=== PATIENT | female | born 1960 | race African-American/Black ===

== ENCOUNTER 2021-04-17 23:45 | Emergency (ER) | payer MEDICAID ==
[~2021-04-17] VITALS: Ht 165.1 cm; Wt 73.0 kg
[2021-04-18 00:49] LABS: BASOPHILS % 0.6 % (0.0-2.0); EOSINOPHILS % 4.5 % (0.0-5.0); HEMATOCRIT. 35.6 % (36.0-48.0); HEMOGLOBIN. 11.5 g/dL (12.0-16.0); LYMPHOCYTES % 22.8 % (20.0-50.0); MEAN CORPUSCULAR VOLUME 80.2 fL (81.0-99.0); MEAN PLATELET VOLUME 7.7 fl (7.4-10.4); NEUTROPHILS % 62.1 % (40.0-76.0); PLATELET 195 x1000/uL (130-400); RED BLOOD CELL COUNT 4.44 mill/uL (4.2-5.4); RED CELL DISTRIBUTION WIDTH 16.5 % (11.6-14.6)
[2021-04-18 04:37] VITALS: BP 140/67
== END 2021-04-18 04:52 | disposition home or self-care (01) ==
LOC: ER 23:45
DX: T43.211A Poisoning by selective serotonin and norepinephrine reuptake inhibitors, accidental (unintentional), initial encounter (principal); R53.83 Other fatigue; I11.0 Hypertensive heart disease with heart failure; I50.9 Heart failure, unspecified; I69.351 Hemiplegia and hemiparesis following cerebral infarction affecting right dominant side; Y92.89 Other specified places as the place of occurrence of the external cause
CPT/HCPCS: 36415; 80048; 85025; 93005; 99284

== ENCOUNTER 2023-03-04 20:03 | Emergency (ER) | payer MEDICAID, MEDICARE ==
[~2023-03-04] VITALS: Ht 172.7 cm; Wt 76.0 kg
[2023-03-04 20:06] VITALS: BP 142/58; PULSE 84; RESP 16; TEMP 98.8; O2SAT 97
== END 2023-03-05 07:51 | disposition home or self-care (01) ==
LOC: ER 20:03
DX: F10.129 Alcohol abuse with intoxication, unspecified (principal); I11.0 Hypertensive heart disease with heart failure; I50.9 Heart failure, unspecified; Z98.890 Other specified postprocedural states; Z86.73 Personal history of transient ischemic attack (TIA), and cerebral infarction without residual deficits; Y90.9 Presence of alcohol in blood, level not specified
CPT/HCPCS: 99283

== ENCOUNTER 2023-03-28 00:40 | Emergency (ER) | payer MEDICARE, MEDICAID ==
[~2023-03-28] VITALS: Ht 170.2 cm; Wt 77.0 kg
[2023-03-28 00:47] VITALS: BP 157/76; PULSE 75; RESP 18; TEMP 98.4; O2SAT 98
[2023-03-28] MEDS ORDERED: TETANUS, DIPHTHERIA, PERTUSSIS VAC/PF 0.5ML (>10YR OLD) IM ONE ×2 (01:00→03:35)
== END 2023-03-28 06:50 | disposition home or self-care (01) ==
LOC: ER 00:40
DX: F10.129 Alcohol abuse with intoxication, unspecified (principal); S00.511A Abrasion of lip, initial encounter; I11.0 Hypertensive heart disease with heart failure; I50.9 Heart failure, unspecified; Z00.00 Encounter for general adult medical examination without abnormal findings; Z86.73 Personal history of transient ischemic attack (TIA), and cerebral infarction without residual deficits; Y90.9 Presence of alcohol in blood, level not specified; X58.XXXA Exposure to other specified factors, initial encounter; Y93.89 Activity, other specified; Y92.89 Other specified places as the place of occurrence of the external cause; Y99.8 Other external cause status
CPT/HCPCS: 90471; 90715; 99284; 99285